=== PATIENT | female | born 1985 | race Caucasian/White ===

== ENCOUNTER 2016-06-09 16:15 | Emergency (ER) | payer OTHER ==
[~2016-06-09] VITALS: Ht 165.1 cm; Wt 59.0 kg
[~2016-06-09 16:15] MED LIST: AMOXICILLIN500 M2 PO; AMOXICILLIN500 MG PO; BIAXIN500 MG PO; CALCIUM + D 6001 TA1 PO; CLARITIN10 MG PO; CORDROL20 MG PO; FISH OIL1000 MG; KEFLEX500 MG PO; NKHM; PREDNISONE20 M1 PO; PRENATAL1 TA3 PO; PROVENTIL0.09 MG/AC IH; PROZAC10 MG PO; ROMYCIN5 MG/GM OP; VITAMIN D2000 IU PO; ZITHROMAX Z PA250 MG PO; ZOFRAN ODT4 MG SL
[2016-06-09] MEDS ORDERED: FLONASE ALLERG9.9 ML NS (17:41)
== END 2016-06-09 17:46 | disposition home or self-care (01) ==
LOC: ED 16:15
DX: J06.9 Acute upper respiratory infection, unspecified (principal); F17.200 Nicotine dependence, unspecified, uncomplicated

== ENCOUNTER 2019-09-27 12:40 | Inpatient (IN) | payer OTHER ==
[~2019-09-27] VITALS: Ht 165.1 cm; Wt 65.0 kg
[~2019-09-27 12:40] MED LIST changes: +FLONASE ALLERG9.9 ML NS
[2019-09-27 13:30] VITALS: BP 119/74
[2019-09-27 14:54] LABS: BASO # 0.1 10*3/uL (0.0-0.1); BASO % 0.6 % (0.0-1.0); EOS # 0.2 10*3/uL (0.0-0.4); EOS % 1.6 % (1.0-4.0); HEMATOCRIT 38.2 % (37.0-47.0); LYMPH # 2.2 10*3/uL (1.3-4.4); LYMPH % 23.2 % (27.0-41.0); MEAN CELL VOLUME 86.2 fl (81.0-99.0); MEAN CORPUSCULAR HGB CONC 32.5 g/dl (33.0-37.0); MEAN PLATELET VOLUME 9.3 fl (9.6-12.3); MONO # 0.8 10*3/uL (0.1-1.0); NEUT # 6.2 10*3/uL (2.3-7.9); NEUT % 66.2 % (47.0-73.0); PLATELET COUNT AUTOMATED 274 10*3/uL (130-400); RED BLOOD COUNT 4.43 10*6/uL (4.10-5.10); RED CELL DISTRI WIDTH 13.6 % (0-14.5); WHITE BLOOD COUNT 9.4 10*3/uL (4.8-10.8)
[2019-09-27 15:06] LABS: INTERNATIONAL NORM RATIO 0.9 (2.0-3.5)
[2019-09-27 15:09] LABS: BILIRUBIN NEGATIVE (NEGATIVE); BLOOD NEGATIVE (NEGATIVE); CLARITY CLEAR (CLEAR); COLOR YELLOW (YELLOW); GLUCOSE NEGATIVE (NEGATIVE); KETONE NEGATIVE (NEGATIVE); LEUKO ESTERASE NEGATIVE (NEGATIVE); NITRITE NEGATIVE (NEGATIVE); SPECIFIC GRAVITY 1.025 (1.005-1.030); UROBILINOGEN 0.2 E.U./dl (0.2-1.0)
[2019-09-27 15:09] LABS: ALBUMIN 3.3 gm/dl (3.1-4.5); ALKALINE PHOSPHATASE 85 U/L (45-117); BUN 16 mg/dl (7-24); CHLORIDE 107 mmol/L (98-107); CREATININE 0.56 mg/dL (0.55-1.02); POTASSIUM 3.8 mmol/L (3.5-5.1); SGOT/AST 11 IU/L (3-35); SGPT/ALT 20 U/L (12-78); SODIUM 137 mmol/L (136-145); TOTAL PROTEIN 7.1 gm/dL (6.4-8.2)
[2019-09-27 15:10] LABS: RBC 0-2 rbc/hpf (0-2); WBC 0-2 wbc/hpf (0-5)
[2019-09-27 15:13] LABS: ETHYL ALCOHOL < 3.0 mg/dl (<3)
[2019-09-27 15:57] LABS: URINE AMPHETAMINES > 1000 (1000ng/ml); URINE BARBITURATES < 200 (200ng/ml); URINE BENZODIAZEPINES < 200 (200ng/ml); URINE CANNABINOIDS (THC) < 50 (50ng/ml); URINE COCAINE < 300 (300ng/ml); URINE METHADONE < 300 (300ng/ml); URINE OPIATES > 300 (300ng/ml)
[2019-09-27 15:58] LABS: URINE PHENCYCLIDINE < 25 (25ng/ml)
[2019-09-27 16:00] VITALS: BP 115/76
[2019-09-27 20:00] VITALS: BP 108/59
[2019-09-28] VITALS: BP 117/69
[2019-09-28 08:00] VITALS: BP 104/58
== END 2019-09-28 14:56 | disposition other institution (70) | DRG 566 ==
LOC: 5E 12:40
PROVIDERS: Registered Nurse; ADMIT Family Medicine
DX: O99.322 Drug use complicating pregnancy, second trimester (principal); F11.23 Opioid dependence with withdrawal; F12.10 Cannabis abuse, uncomplicated; F17.210 Nicotine dependence, cigarettes, uncomplicated; O99.512 Diseases of the respiratory system complicating pregnancy, second trimester; J30.9 Allergic rhinitis, unspecified; O99.332 Smoking (tobacco) complicating pregnancy, second trimester; Z3A.26 26 weeks gestation of pregnancy; Z91.19 Patient's noncompliance with other medical treatment and regimen

== ENCOUNTER 2020-11-02 15:50 | Inpatient (IN) | payer OTHER ==
[~2020-11-02] VITALS: Ht 165.1 cm; Wt 69.4 kg
[2020-11-02 16:27] VITALS: BP 120/88
[2020-11-02] MEDS ORDERED: COL-RITE100 M1 PO (16:32)
[2020-11-02] MEDS ORDERED: NARCAN4 MG NAS (16:32)
[2020-11-02 16:54] LABS: BASO # 0.1 10*3/uL (0.0-0.1); BASO % 1.1 % (0.0-1.0); EOS # 0.1 10*3/uL (0.0-0.4); EOS % 1.1 % (1.0-4.0); HEMATOCRIT 37.8 % (37.0-47.0); LYMPH # 2.2 10*3/uL (1.3-4.4); LYMPH % 29.3 % (27.0-41.0); MEAN CELL VOLUME 82.4 fl (81.0-99.0); MEAN CORPUSCULAR HGB 27.5 pg (27.0-31.0); MEAN CORPUSCULAR HGB CONC 33.3 g/dl (33.0-37.0); MEAN PLATELET VOLUME 8.9 fl (9.6-12.3); MONO # 0.7 10*3/uL (0.1-1.0); MONO % 9.9 % (3.0-9.0); NEUT # 4.3 10*3/uL (2.3-7.9); NEUT % 58.2 % (47.0-73.0); PLATELET COUNT AUTOMATED 270 10*3/uL (130-400); RED BLOOD COUNT 4.59 10*6/uL (4.10-5.10); RED CELL DISTRI WIDTH 13.4 % (0-14.5); WHITE BLOOD COUNT 7.4 10*3/uL (4.8-10.8)
[2020-11-02 17:07] LABS: ALBUMIN 3.4 gm/dl (3.1-4.5); ALKALINE PHOSPHATASE 96 U/L (45-117); BUN 11 mg/dl (7-24); CHLORIDE 107 mmol/L (98-107); CREATININE 0.81 mg/dL (0.55-1.02); POTASSIUM 3.4 mmol/L (3.5-5.1); SGOT/AST 16 IU/L (3-35); SGPT/ALT 24 U/L (12-78); SODIUM 138 mmol/L (136-145); TOTAL PROTEIN 7.4 gm/dL (6.4-8.2)
[2020-11-02 17:12] LABS: BETA-HCG, QUANT < 1.0 mIU/mL (1-3)
[2020-11-02 17:22] LABS: BILIRUBIN 1+ (Negative); BLOOD Negative (Negative); CLARITY Cloudy (Clear); COLOR Dark Yellow (Yellow); GLUCOSE Negative (Negative); KETONE Trace (Negative); LEUKO ESTERASE 1+ (Negative); NITRITE Negative (Negative); SPECIFIC GRAVITY >= 1.030 (1.001-1.030)
[2020-11-02 17:49] LABS: RBC 0-2 rbc/hpf (0-2)
[2020-11-02 17:50] LABS: BACTERIA 1+; MUCOUS 3+
[2020-11-02 18:02] LABS: URINE AMPHETAMINES > 1000 (1000ng/ml); URINE BARBITURATES > 200 (200ng/ml); URINE BENZODIAZEPINES < 200 (200ng/ml); URINE CANNABINOIDS (THC) < 50 (50ng/ml); URINE COCAINE < 300 (300ng/ml); URINE OPIATES < 300 (300ng/ml)
[2020-11-02 18:03] LABS: URINE METHADONE < 300 (300ng/ml)
[2020-11-02 18:07] LABS: URINE PHENCYCLIDINE < 25 (25ng/ml)
[2020-11-02 20:00] VITALS: BP 129/83
[2020-11-03] VITALS: BP 128/82
[2020-11-03 06:17] LABS: CHLORIDE 111 mmol/L (98-107); POTASSIUM 3.2 mmol/L (3.5-5.1); SODIUM 140 mmol/L (136-145)
[2020-11-03 06:23] LABS: BUN 12 mg/dl (7-24)
[2020-11-03 08:00] VITALS: BP 135/83
[2020-11-03 12:00] VITALS: BP 125/83
[2020-11-03 16:00] VITALS: BP 110/67
[2020-11-03 20:00] VITALS: BP 124/65
[2020-11-04] VITALS: BP 119/98
[2020-11-04 06:28] LABS: BUN 12 mg/dl (7-24); CHLORIDE 111 mmol/L (98-107); POTASSIUM 3.6 mmol/L (3.5-5.1); SODIUM 141 mmol/L (136-145)
[2020-11-04 06:30] LABS: CREATININE 0.78 mg/dL (0.55-1.02)
[2020-11-04 08:00] VITALS: BP 113/67
[2020-11-04 12:00] VITALS: BP 98/48
[2020-11-04 16:00] VITALS: BP 107/65
[2020-11-04 20:00] VITALS: BP 118/67
[2020-11-05] VITALS: BP 127/69
[2020-11-05 08:00] VITALS: BP 126/74
== END 2020-11-05 12:16 | disposition home or self-care (01) | DRG 773 ==
LOC: ED 15:50 → EDHOLD 17:00 → 5E 17:00
PROVIDERS: Internal Medicine; Student in an Organized Health Care Education/Training Program; ADMIT Family Medicine; ATTEND Family Medicine
DX: F11.23 Opioid dependence with withdrawal (principal); F41.9 Anxiety disorder, unspecified; F10.239 Alcohol dependence with withdrawal, unspecified; F15.10 Other stimulant abuse, uncomplicated; F32.9 Major depressive disorder, single episode, unspecified; E87.6 Hypokalemia; E83.51 Hypocalcemia; Z71.6 Tobacco abuse counseling; F17.210 Nicotine dependence, cigarettes, uncomplicated

== ENCOUNTER 2020-11-20 23:40 | Emergency (ER) | payer OTHER ==
[~2020-11-20] VITALS: Ht 165.1 cm; Wt 72.6 kg
[~2020-11-20 23:40] MED LIST changes: +COL-RITE100 M1 PO; +NARCAN4 MG NAS
[2020-11-21 01:33] LABS: BASO # 0.1 10*3/uL (0.0-0.1); BASO % 0.9 % (0.0-1.0); EOS # 0.1 10*3/uL (0.0-0.4); EOS % 1.8 % (1.0-4.0); HEMATOCRIT 38.6 % (37.0-47.0); LYMPH # 1.9 10*3/uL (1.3-4.4); LYMPH % 29.3 % (27.0-41.0); MEAN CELL VOLUME 86.2 fl (81.0-99.0); MEAN CORPUSCULAR HGB 27.2 pg (27.0-31.0); MEAN CORPUSCULAR HGB CONC 31.6 g/dl (33.0-37.0); MEAN PLATELET VOLUME 9.3 fl (9.6-12.3); MONO # 0.4 10*3/uL (0.1-1.0); MONO % 6.4 % (3.0-9.0); NEUT # 4.1 10*3/uL (2.3-7.9); NEUT % 61.4 % (47.0-73.0); PLATELET COUNT AUTOMATED 241 10*3/uL (130-400); RED BLOOD COUNT 4.48 10*6/uL (4.10-5.10); RED CELL DISTRI WIDTH 13.7 % (0-14.5); WHITE BLOOD COUNT 6.6 10*3/uL (4.8-10.8)
[2020-11-21 02:00] LABS: ALBUMIN 3.2 gm/dl (3.1-4.5); ALKALINE PHOSPHATASE 84 U/L (45-117); BUN 13 mg/dl (7-24); CHLORIDE 107 mmol/L (98-107); CREATININE 0.82 mg/dL (0.55-1.02); POTASSIUM 3.9 mmol/L (3.5-5.1); SGOT/AST 10 IU/L (3-35); SGPT/ALT 24 U/L (12-78); SODIUM 139 mmol/L (136-145); TOTAL PROTEIN 6.5 gm/dL (6.4-8.2)
== END 2020-11-21 02:58 | disposition home or self-care (01) ==
LOC: ED 23:40
PROVIDERS: Internal Medicine
DX: B34.9 Viral infection, unspecified (principal); Z20.822 Contact with and (suspected) exposure to COVID-19; F17.200 Nicotine dependence, unspecified, uncomplicated; R11.2 Nausea with vomiting, unspecified; Z96.22 Myringotomy tube(s) status

== ENCOUNTER 2021-01-08 22:14 | Emergency (ER) | payer OTHER ==
[~2021-01-08] VITALS: Ht 165.1 cm; Wt 72.6 kg
== END 2021-01-08 23:40 | disposition home or self-care (01) ==
LOC: ED 22:14
DX: J02.9 Acute pharyngitis, unspecified (principal); F17.200 Nicotine dependence, unspecified, uncomplicated

== ENCOUNTER 2021-05-03 21:11 | Emergency (ER) | payer OTHER ==
[~2021-05-03] VITALS: Ht 160 cm; Wt 72.6 kg
[2021-05-03] MEDS ORDERED: CEPHALEXIN500 M1 PO (23:40)
[2021-05-03] MEDS ORDERED: Bactroban Oint22 GM T (23:40)
== END 2021-05-04 00:08 | disposition home or self-care (01) ==
LOC: ED 21:11
DX: L01.00 Impetigo, unspecified (principal)

== ENCOUNTER 2021-08-01 10:11 | Inpatient (IN) | payer OTHER ==
[~2021-08-01] VITALS: Ht 165.1 cm; Wt 65.5 kg
[~2021-08-01 10:11] MED LIST changes: +Bactroban Oint22 GM T; +CEPHALEXIN500 M1 PO
[2021-08-01 10:45] VITALS: BP 115/77
[2021-08-01 13:17] LABS: BASO # 0.1 10*3/uL (0.0-0.1); BASO % 0.9 % (0.0-1.0); EOS # 0.2 10*3/uL (0.0-0.4); EOS % 2.4 % (1.0-4.0); HEMATOCRIT 38.5 % (37.0-47.0); MEAN CELL VOLUME 82.4 fl (81.0-99.0); MEAN CORPUSCULAR HGB 27.4 pg (27.0-31.0); MEAN CORPUSCULAR HGB CONC 33.2 g/dl (33.0-37.0); MEAN PLATELET VOLUME 8.7 fl (9.6-12.3); MONO # 0.6 10*3/uL (0.1-1.0); MONO % 6.7 % (3.0-9.0); NEUT # 4.3 10*3/uL (2.3-7.9); NEUT % 52.6 % (47.0-73.0); PLATELET COUNT AUTOMATED 314 10*3/uL (130-400); RED BLOOD COUNT 4.67 10*6/uL (4.10-5.10); RED CELL DISTRI WIDTH 13.4 % (0-14.5); WHITE BLOOD COUNT 8.2 10*3/uL (4.8-10.8)
[2021-08-01 13:33] LABS: ALKALINE PHOSPHATASE 95 U/L (45-117); BETA-HCG, QUANT < 1.0 mIU/mL (1-3); BUN 15 mg/dl (7-24); CHLORIDE 108 mmol/L (98-107); CREATININE 0.78 mg/dL (0.55-1.02); ETHYL ALCOHOL < 3.0 mg/dl (<3); POTASSIUM 3.6 mmol/L (3.5-5.1); SGOT/AST 11 IU/L (3-35); SGPT/ALT 18 U/L (12-78); SODIUM 140 mmol/L (136-145); TOTAL PROTEIN 6.6 gm/dL (6.4-8.2)
[2021-08-01 14:50] VITALS: BP 109/67; BP 109/77
[2021-08-01 15:42] LABS: BILIRUBIN Negative (Negative); BLOOD Negative (Negative); CLARITY Clear (Clear); COLOR Yellow (Yellow); GLUCOSE Negative (Negative); KETONE Negative (Negative); LEUKO ESTERASE Negative (Negative); NITRITE Negative (Negative); PH 5.5 (4.5-8.0); UROBILINOGEN 0.2 E.U./dl (0.0-1.0)
[2021-08-01 15:47] LABS: URINE AMPHETAMINES > 1000 (1000ng/ml); URINE BARBITURATES < 200 (200ng/ml); URINE BENZODIAZEPINES < 200 (200ng/ml); URINE CANNABINOIDS (THC) < 50 (50ng/ml); URINE COCAINE < 300 (300ng/ml); URINE METHADONE < 300 (300ng/ml); URINE OPIATES < 300 (300ng/ml)
[2021-08-01 15:49] LABS: URINE PHENCYCLIDINE < 25 (25ng/ml)
[2021-08-01 15:52] LABS: BACTERIA 2+; MUCOUS 2+
[2021-08-01 15:53] LABS: CALCIUM OXALATE CRYSTALS 1+
[2021-08-01 16:00] VITALS: BP 109/77
[2021-08-01 18:00] VITALS: BP 109/77
[2021-08-01 20:00] VITALS: BP 96/69
[2021-08-02] VITALS: BP 101/63
[2021-08-02 08:00] VITALS: BP 121/90
[2021-08-02 12:00] VITALS: BP 124/79
[2021-08-02 16:00] VITALS: BP 120/74
[2021-08-02 20:00] VITALS: BP 112/69
[2021-08-03] VITALS: BP 116/77
[2021-08-03 08:00] VITALS: BP 108/75
[2021-08-03 12:00] VITALS: BP 120/85
[2021-08-03 16:00] VITALS: BP 113/83
[2021-08-03 21:34] VITALS: BP 110/70
[2021-08-04] VITALS: BP 90/50
[2021-08-04 08:00] VITALS: BP 118/80
[2021-08-04 12:00] VITALS: BP 102/66
== END 2021-08-04 13:07 | disposition home or self-care (01) | DRG 773 ==
LOC: ED 10:11 → EDHOLD 13:04 → 4E 13:04
PROVIDERS: Emergency Medicine; Family Medicine; ADMIT Student in an Organized Health Care Education/Training Program; ATTEND Student in an Organized Health Care Education/Training Program
DX: F11.23 Opioid dependence with withdrawal (principal); F10.230 Alcohol dependence with withdrawal, uncomplicated; E44.0 Moderate protein-calorie malnutrition; F15.10 Other stimulant abuse, uncomplicated; E83.41 Hypermagnesemia; E87.8 Other disorders of electrolyte and fluid balance, not elsewhere classified; F17.210 Nicotine dependence, cigarettes, uncomplicated; F41.9 Anxiety disorder, unspecified; Z79.899 Other long term (current) drug therapy; Z71.6 Tobacco abuse counseling; Z68.24 Body mass index [BMI] 24.0-24.9, adult

== ENCOUNTER 2022-03-12 03:17 | Emergency (ER) | payer OTHER ==
[~2022-03-12] VITALS: Ht 165.1 cm; Wt 67.1 kg
[2022-03-12] MEDS ORDERED: SEPTDS PO (03:43)
== END 2022-03-12 03:47 | disposition home or self-care (01) ==
LOC: ED 03:17
DX: L98.1 Factitial dermatitis (principal); F14.10 Cocaine abuse, uncomplicated; F19.90 Other psychoactive substance use, unspecified, uncomplicated; F12.10 Cannabis abuse, uncomplicated; F17.210 Nicotine dependence, cigarettes, uncomplicated; F17.200 Nicotine dependence, unspecified, uncomplicated